=== PATIENT | female | born 1995 | race Caucasian/White ===

== ENCOUNTER → 2019-08-09 | Outpatient (CLI) | payer BC ==
--- NOTE | 2019-08-10 11:38 | ECHOF ---
Referral Reason:R00.2 palpitations MEASUREMENTS -------- HEIGHT: 172.7 cm WEIGHT: 63.5 kg BP: 122/61 RVIDd: 2.5 cm (< 3.3) IVSd: 1.0 cm (0.6 - 1.1) LVIDd: 4.1 cm (3.9 - 5.3) LVPWd: 1.0 cm (0.6 - 1.1) IVSs: 1.3 cm LVIDs: 2.9 cm LVPWs: 1.6 cm LA Diam: 3.0 cm (2.7 - 3.8) LAESV Index (A-L): 28.79 ml/m Ao Diam: 2.8 cm (2.0 - 3.7) AV Cusp: 2.2 cm (1.5 - 2.6) MV EXCURSION: 25.054 mm (> 18.000) MV EF SLOPE: 142 mm/s (70 - 150) EPSS: 0.5 cm MV E Chaov: 1.07 m/s MV DecT: 203 ms MV A Chavo: 0.42 m/s MV E/A Ratio: 2.55 RAP: 5.00 mmHg RVSP: 25.95 mmHg FINDINGS -------- Sinus rhythm. This was a technically good study. The left ventricular size is normal. Left ventricular wall thickness is normal. Overall left vent ricular systolic function is normal with, an EF between 60 - 65 %. The right ventricle is normal in size. The left atrial size is normal. The right atrium is normal in size. Interatrial and interventricular septum intact. The aortic valve is trileaflet and appears structurally normal. The mitral valve is normal. Mild tricuspid regurgitation present. Right ventricular systolic pressure is normal at < 35 mmHg. Trace/mild (physiologic) pulmonic regurgitation. The aortic root size is normal. Normal inferior vena cava with normal inspiratory collapse consistent with estimated right atrial pre ssure of 5 mmHg. There is no pericardial effusion. CONCLUSIONS -------- 1. Sinus rhythm. 2. This was a technically good study. 3. The left ventricular size is normal. 4. Left ventricular wall thickness is normal. 5. Overall left ventricular systolic function is normal with, an EF between 60 - 65 %. 6. The right ventricle is normal in size. 7. The left atrial size is normal. 8. The right atrium is normal in size. 9. Interatrial and interventricular septum intact. 10. The aortic valve is trileaflet and appears structurally normal. 11. The mitral valve is normal. 12. Mild tricuspid regurgitation present. 13. Right ventricular systolic pressure is normal at < 35 mmHg. 14. Trace/mild (physiologic) pulmonic regurgitation. 15. The aortic root size is normal. 16. Normal inferior vena cava with normal inspiratory collapse consistent with estimated right atrial pressure of 5 mmHg. 17. There is no pericardial effusion. ADVERTISING STATISTICAL CLERK: Qing Mejias RDCS
== END | disposition home or self-care (01) ==
LOC: RADECHMAIN 13:16
PROVIDERS: ATTEND Family Medicine
DX: I07.1 Rheumatic tricuspid insufficiency (principal); I09.89 Other specified rheumatic heart diseases
CPT/HCPCS: 93306